=== PATIENT | female | born 1985 | race Caucasian/White ===

== ENCOUNTER → 2020-06-16 | Outpatient (CLI) | payer OTHER, BC ==
[~2020-06-16] MED LIST: ALBU8.5H8 INH; BUSP5TAB2 PO; DULO30CA2 PO; ELDERBERRY PO; ESCI10TA10 PO; FLUT9.9S NS; HYDR2TAB29 PO; IBUP-1222 PO; METO10TA82 PO; progesterone PO
[2020-06-16 16:05] LABS: BASOPHILS % (AUTO) 1 % (0-1); EOSINOPHILS % (AUTO) 1 % (1-7); LYMPHOCYTES % (AUTO) 28 % (22-44); MEAN CORPUSCULAR HEMOGLOBIN 27.9 pg (27.0-34.8); MEAN CORPUSCULAR HGB CONC 33.2 g/dL (32.4-35.8); MEAN PLATELET VOLUME 11.5 fL (7.4-10.4); MONOCYTES % (AUTO) 6 % (2-9); NEUTROPHILS % (AUTO) 64 % (42-75); PLATELET COUNT 238 x10^3/uL (130-400); RED BLOOD COUNT 4.82 x10^6/uL (3.82-5.3); RED CELL DISTRIBUTION WIDTH 14.4 % (9.6-15.2)
[2020-06-16 16:16] LABS: MICROSCOPIC NOT IND
[2020-06-16 16:17] LABS: ALBUMIN 3.3 g/dL (3.4-5.0); ANION GAP 8 mmol/L (5-15); CALCIUM 8.7 mg/dL (8.5-10.1); CHLORIDE 108 mmol/L (98-107)
[2020-06-16 16:23] LABS: ALANINE AMINOTRANSFERASE 34 U/L (12-78); ALKALINE PHOSPHATASE 88 U/L (45-117); BILIRUBIN,TOTAL 0.2 mg/dL (0.2-1.0); CREATININE 0.79 mg/dL (0.55-1.02); TOTAL PROTEIN 6.9 g/dL (6.4-8.2)
[2020-06-16 16:45] LABS: MD MORPH REVIEW ONLY
[2020-06-16 16:46] LABS: <PLATELET ESTIMATE> ADEQUATE; <RBC MORPHOLOGY> NORMAL; LARGE PLATELETS 1+
== END | disposition home or self-care (01) ==
LOC: STAR 15:00
PROVIDERS: ATTEND Obstetrics & Gynecology Gynecology
DX: Z01.812 Encounter for preprocedural laboratory examination (principal); Z20.822 Contact with and (suspected) exposure to COVID-19; N92.0 Excessive and frequent menstruation with regular cycle; N94.10 Unspecified dyspareunia
CPT/HCPCS: 36415; 80053; 81003; 84703; 85025; U0003

== ENCOUNTER 2020-06-20 05:40 | Day surgery (SDC) | payer OTHER, BC ==
[~2020-06-20] VITALS: Ht 165.1 cm; Wt 77.4 kg
[2020-06-20 06:36] VITALS: BP 135/86
[2020-06-20] MEDS ORDERED: INDIGO CARMINE 0.8%, 5ML ONE (06:43)
[2020-06-20] MEDS ORDERED: LIDOCAINE/PF 1%, 30ML ONE (06:43)
[2020-06-20] MEDS ORDERED: EPINEPHRINE 1 MG/ML, 1ML ONE (06:43)
[2020-06-20] MEDS ORDERED: MIDAZOLAM 1 MG/ML, 2ML ONE (06:55)
[2020-06-20] MEDS ORDERED: ROCURONIUM 10MG/ML,5ML ONE (06:56)
[2020-06-20] MEDS ORDERED: FENTANYL PF 250 MCG/5ML ONE (06:56)
[2020-06-20] MEDS ORDERED: PROPOFOL 10 MG/ML, 20ML ONE (06:56)
[2020-06-20] MEDS ORDERED: CHLORHEXIDINE 15 ML UDC MM ONE (07:00)
[2020-06-20] MEDS ORDERED: LACTATED RINGERS 1,000 ML IV SCH (07:00)
[2020-06-20] MEDS ORDERED: PROPOFOL 50 ML ONE (07:11)
[2020-06-20 07:15] LABS: HCG UR SG 1.009 (1.003-1.030)
[2020-06-20] MEDS ORDERED: LORazepam 2 MG/ML, 1ML IVPush PRN (07:30)
[2020-06-20] MEDS ORDERED: MIDAZOLAM 1 MG/ML, 2ML IV PRN (07:30)
[2020-06-20] MEDS ORDERED: PROMETHAZINE 25 MG/ML, 1ML IVPush PRN (07:30)
[2020-06-20] MEDS ORDERED: LABETALOL 5MG/ML, 20ML IV PRN (07:30)
[2020-06-20] MEDS ORDERED: CEFAZOLIN 1,000 MG ONE ×3 (07:30)
[2020-06-20] MEDS ORDERED: hydrALAzine 20 MG/ML, 1ML IV PRN (07:30)
[2020-06-20] MEDS ORDERED: ACETAMINOPHEN 325 MG TABLET PO PRN (07:30)
[2020-06-20] MEDS ORDERED: ONDANSETRON 2MG/ML, 2ML IVPush PRN (07:30)
[2020-06-20] MEDS ORDERED: MEPERIDINE/PF 25MG/0.5ML IVPush PRN (07:30)
[2020-06-20] MEDS ORDERED: OXYcodone 5 MG/5 ML ORAL.SOL UDC PO PRN (07:30)
[2020-06-20] MEDS ORDERED: KETOROLAC 30 MG/1 ML ONE (07:53)
[2020-06-20] MEDS ORDERED: ONDANSETRON 2MG/ML, 2ML ONE (08:02)
[2020-06-20] MEDS ORDERED: FENTANYL PF 100 MCG/2ML ONE (09:01)
[2020-06-20] MEDS: FENTANYL PF 100 MCG/2ML IV PRN ×2 (09:03→09:15)
[2020-06-20] MEDS ORDERED: ACETAMINOPHEN 650 MG/20.3 ML UDC ONE (09:16)
[2020-06-20] MEDS: HYDROmorphone 1 MG/ML, 1ML INJ IVPush PRN ×2 (14:00→15:00)
== END 2020-06-20 14:50 | disposition home or self-care (01) ==
LOC: OUT 05:40
PROVIDERS: ATTEND Obstetrics & Gynecology Gynecology
DX: N92.0 Excessive and frequent menstruation with regular cycle (principal); N80.0 Endometriosis of uterus; N80.8 Other endometriosis; J45.909 Unspecified asthma, uncomplicated; Z98.890 Other specified postprocedural states; Z79.899 Other long term (current) drug therapy; Z82.49 Family history of ischemic heart disease and other diseases of the circulatory system
CPT/HCPCS: 36415; 58260; 81025; 85014; 85018; 88307; J0171; J0690; J1170; J1885; J2250; J2405; J2704; J3010; J7120